=== PATIENT | female | born 1975 | race Caucasian/White ===

== ENCOUNTER → 2022-01-12 11:08 | Outpatient (CLI) | payer BC, SELFPAY ==
[2022-01-12 12:47] LABS: Chloride 104 mmol/L (98-107); Potassium 4.1 mmoL/L (3.5-5.1); Sodium 137 mmol/L (136-145)
[2022-01-12 12:49] LABS: Basophils # 0.1 K/mm3 (0-0.2); Basophils % 1.5 % (0.1-2.0); Eosinophils # 0.2 K/mm3 (0.0-0.4); Eosinophils % 2.9 % (0.1-12.0); Hematocrit 44.7 % (37.0-47.0); Hemoglobin 14.3 g/dL (12.2-16.2); Lymphocytes # 2.1 K/mm3 (0.7-4.5); Lymphocytes % 30.4 % (10-50); Mean Corpuscular HGB Conc 31.9 g/dL (31.8-35.4); Mean Corpuscular Volume 97.1 fl (81-99); Mean Platelet Volume 8.3 fl (7.4-10.4); Monocytes # 0.3 K/mm3 (0.1-1.0); Monocytes % 4.8 % (1.7-9.3); Neutrophils # 4.1 K/mm3 (1.8-7.8); Neutrophils % 60.5 % (37.0-80.0); Platelet Count 285 K/mm3 (142-424); Red Blood Count 4.61 M/mm3 (4.20-5.40); Red Cell Distribution Width 13.2 % (11.5-17.5); White Blood Count 6.8 K/mm3 (4.8-10.8)
[2022-01-12 12:50] LABS: Alanine Aminotransferase 22 U/L (12-78); Albumin/Globulin Ratio 1.6 (1.1-1.8); Alkaline Phosphatase 78 U/L (38-126); Anion Gap 13.1 mEq/L (5-15); Aspartate Amino Transferase 29 U/L (14-36); Bilirubin,Total 0.5 mg/dl (0.2-1.3); Blood Urea Nitrogen 12 mg/dl (7-17); Calcium 8.1 mg/dl (8.4-10.2); Carbon Dioxide 24 mmol/L (22.0-30.0); Estimated Glomerular Filt Rate 108 ml/min (>60); GFR (African American) 130 ML/MIN (>60); Globulin 2.5 g/dL (1.3-3.2); Glucose 327 mg/dl (74-100); Total Protein,Serum 6.5 g/dl (6.3-8.2)
[2022-01-12 12:58] LABS: C-Reactive Protein 17.2 mg/L (0-4)
[2022-01-12 13:53] LABS: Hemoglobin A1C 11.9 % (4.0-6.0)
[2022-01-12 14:01] LABS: Erythrocyte Sedimentation Rate 19 mm/hr (0-20)
== END ==
PROVIDERS: Visit Provider Nurse Practitioner Family
DX: M79.672 Pain in left foot (principal); M79.671 Pain in right foot
CPT/HCPCS: 80053; 83036; 85025; 85651; 86140

== ENCOUNTER 2022-04-17 11:03 | Emergency (ER) | payer BC, SELFPAY ==
[2022-04-17 11:14] VITALS: PULSE 108; RESP 18; TEMP 37.4; O2SAT 100; BMI 37.6
--- NOTE | 2022-04-17 11:36 | HMH.EDUTC ---
[facility] [place] Disposition Clinical Impression: Cutaneous abscess of perineum Disposition: Home, Self-Care Condition on Discharge: Good Instructions: Boil Additional Instructions: Keep the affected area clean and dry. Follow up with your regular doctor. Take the antibiotics as directed and apply the topical antibiotics as directed. Apply warm wet compresses to the affected area three or four times per day. GO TO THE ER FOR ANY WORSENING SYMPTOMS MAKE SURE YOU FOLLOW UP IN 3 DAYS FOR A WOUND RECHECK AND TO HAVE SOMEONE GO OVER THE CULTURE RESULTS AND ADJUST YOUR ANTIBIOTICS ACCORDINGLY. Prescriptions: Sulfamethoxazole/Trimethoprim [Bactrim DS tablet] 1 each PO BID 10 Days #20 tab Transmission Status: Received by [facility] #[id number] Mupirocin [Bactroban 2% Ointment 22gm tube] 1 applicatio TP TID 7 Days #1 gm Transmission Status: Received by [facility] #[id number] cephALEXin [cephALEXin 500mg capsule] 500 mg PO Q6H 10 Days #40 cap Transmission Status: Received by [facility] # Referrals: Norm Franco JR, MD [Primary Care Provider] - Forms: Work/School Release Time of Disposition: 11:41 Medical Decision Making - Medical Records Medical records reviewed: No: I reviewed the patient's medical records. - Bhaskar Inquiry Pt receiving controlled substance: No Vital Signs: 04/17/22 11:14 04/17/22 11:46 Temperature 99.4 F 99.4 F Temperature Source Oral Pulse Rate 108 H Pulse Rate [Left Radial] 108 H Respiratory Rate 18 18 Blood Pressure 185/89 H 02 Sat by Pulse Oximetry 100 Orders (Tests/Meds): ED MEDICATIONS Discontinued Medications Generic Name Dose Route Start Last Admin Trade Name Freq PRN Reason Stop Dose Admin Ceftriaxone Sodium 1 gm 04/17/22 11:41 04/17/22 11:45 Ceftriaxone 1gm Vial IM 04/17/22 11:42 1 gm ONCE ONE Administration Lidocaine HCl 0 ml 04/17/22 11:41 04/17/22 11:46 Lidocaine 1% 5ml Pf Vial IM 04/17/22 11:42 2 ml ONCE ONE Administration ORDERS Category Date Time Status Wound Culture and Gram Stain Stat Micro 04/17/22 11:40 Results [facility] [place] HPI - General Stated complaint: possible abcess Time Seen by Provider: 04/17/22 11:15 Description of Symptoms (Recalled from Triage Doc. by RN): patient comes in today with complaints of an abcess on right buttock. patient states it has been getting worse for 3 days HEENT Symptoms (Recalled from RN notes): No Resp Symptoms (Recalled from RN notes): No Skin Symptoms (Recalled from RN notes): Yes MS Symptoms (Recalled from RN notes): No Functional Status (Recalled from RN notes): wnl - History of Present Illness Provider Complaint: She has a boil on her right upper inner thigh, near her perineum, that has been present for the past 3 days. She states that the swelling and tenderness has been getting worse. She denies any fever or chills. Yesteday it started to have tannish drainge from the site. - Related Data Home Medications Medication Instructions Recorded Confirmed Norethindrone-Ethin. Estradiol 1 tab PO DAILY 02/02/19 01/19/22 [Nortrel 1-35 28 Tablet] amlodipine 5 mg tablet 5 mg PO tab 01/19/22 01/19/22 hydrochlorothiazide 25 mg tablet 25 mg PO tab 01/19/22 01/19/22 Previous Rx's Medication Instructions Recorded ciclopirox 0.77 % topical cream 1 applic TOPICAL BID 90 Days #90 g 04/01/21 ketoconazole 2 %-hydrocortisone 1 applic TOPICAL BID 30 Days #30 g 12/16/21 2.5 % topical cream sulfamethoxazole 800 1 tab PO BID 10 Days #20 tab 01/12/22 mg-trimethoprim 160 mg tablet Mupirocin [Bactroban 2% Ointment 1 applicatio TP TID 7 Days #1 gm 04/17/22 22gm tube] Sulfamethoxazole/Trimethoprim 1 each PO BID 10 Days #20 tab 04/17/22 [Bactrim DS tablet] cephALEXin [cephALEXin 500mg 500 mg PO Q6H 10 Days #40 cap 04/17/22 capsule] Allergies Allergy/AdvReac Type Severity Reaction Status Date / Time No Known Allergies Allergy Verifi
[2022-04-17 11:46] VITALS: BP 185/89; PULSE 108; RESP 18; TEMP 37.4
== END 2022-04-17 11:50 | disposition home or self-care (01) ==
PROVIDERS: Emergency Provider Nurse Practitioner Family; PCP Family Medicine
DX: L02.215 Cutaneous abscess of perineum (principal); B96.20 Unspecified Escherichia coli [E. coli] as the cause of diseases classified elsewhere; B95.1 Streptococcus, group B, as the cause of diseases classified elsewhere
CPT/HCPCS: 87070; 87077; 87186; 87205; 96372; 99212; G0463; J0696